=== PATIENT | male | born 1945 | race Caucasian/White ===

== ENCOUNTER 2018-05-03 10:24 | Day surgery (SDC) | payer MEDICARE, OTHER ==
[~2018-05-03] VITALS: Ht 162.6 cm; Wt 69.4 kg
[2018-05-03] MEDS ORDERED: MYCOPHENOLIC ACID (12:44)
[2018-05-03] MEDS ORDERED: DILTIAZEM (12:44)
[2018-05-03] MEDS ORDERED: ENVARSUS (12:44)
[2018-05-03] MEDS ORDERED: PLAVIX (12:44)
[2018-05-03] MEDS ORDERED: LANTUS (12:44)
[2018-05-03] MEDS ORDERED: FUROSEMIDE (12:44)
[2018-05-03] MEDS ORDERED: AMLODIPINE (12:44)
[2018-05-03] MEDS ORDERED: ATORVASTATIN (12:44)
[2018-05-03] MEDS ORDERED: PREDNISONE (12:44)
[2018-05-03 12:56] VITALS: BP 162/89; PULSE 72; RESP 18
[2018-05-03] MEDS ORDERED: CEFAZOLIN 1 GM/50 ML (PMX) 50 ML IVPB ONE (12:56)
[2018-05-03] MEDS ORDERED: PROPOFOL 20 ML ONE (13:10)
--- NOTE | 2018-05-03 13:14 | PREAC ---
Date/Time of Note Date/Time of Note DATE: 05/03/18 TIME: 13:13 Anesthesia Eval and Record Evaluation Time Pre-Procedure Interview DATE: 05/03/18 TIME: 13:13 Age 72 Sex male NPO: 8 hrs Preoperative diagnosis abd pain Planned procedure EGD Past Medical History Past Medical History: Includes Cardio: HTN Endo: Diabetes Renal: Other (kidney transplant) Surgery & Anesthesia Issues No known issue Meds Anticoagulation: Yes (stop 3 days ago plavix) Beta Naz within 24 hr: No Reason Beta Naz not given: Pt. not on B-Naz Reported Medications [Prednisone] No Conflict Check 05/03/18 [Mycophenolic Acid] No Conflict Check 05/03/18 [Atorvastatin] No Conflict Check 05/03/18 [Envarsus] No Conflict Check 05/03/18 [Diltiazem ] No Conflict Check 05/03/18 [Furosemide] No Conflict Check 05/03/18 [Amlodipine] No Conflict Check 05/03/18 [Plavix] No Conflict Check 05/03/18 [Lantus] No Conflict Check 05/03/18 Current Medications Cefazolin Sodium 50 ml @ 100 mls/hr ONCE IVPB ; Start 05/03/18 at 13:30; Stop 05/03/18 at 13:59; Status UNV Meds reviewed: Yes Allergies Coded Allergies: No Known Allergy (Unverified , 05/03/18) Allergies Reviewed: Yes Labs/Studies Labs Reviewed: Reviewed by anesthesiologist test: N/A Studies: ECG (n/a), CXR (n/a) Pre-procedure Exam Last vitals Vital Signs Date Temp Pulse Resp B/P (MAP) Pulse Ox O2 O2 Flow FiO2 Time Delivery Rate 05/03/18 98.7 72 18 162/89 97 Room Air 12:56 (113) Airway: Adequate mouth opening Mallampati: Mallampati I Teeth: Abnormal Lung: Normal Heart: Normal ASA Physical Status ASA physical status: 2 Emergency: None Planned Pain Management Parenteral pain med Pre-operative Attestations Prior to commencing anesthesia and surgery, the patient was re-evaluated, there was verification of: *The patient's identity *The results of appropriate recent lab work and preoperative vital signs *The above evaluation not changing prior to induction *Anesthetic plan, risk benefits, alternative and complications discussed with patient/family; questions answered; patient/family understands, accepts and wishes to proceed. LESLIE BOYD MD May 03, 2018 13:14
--- NOTE | 2018-05-03 13:29 | PAC ---
Date/Time of Note Date/Time of Note DATE: 05/03/18 TIME: 13:29 Post-Anesthesia Notes Post-Anesthesia Note Last documented vital signs Vital Signs Date Temp Pulse Resp B/P (MAP) Pulse Ox O2 O2 Flow FiO2 Time Delivery Rate 05/03/18 98.7 72 18 162/89 97 Room Air 12:56 (113) Activity: WNL Respiratory function: WNL Cardiovascular function: WNL Mental status: Baseline Pain reasonably controlled: Yes Hydration appropriate: Yes Nausea/Vomiting absent: No LESLIE BOYD MD May 03, 2018 13:29
[2018-05-03] MEDS ORDERED: HYDROmorphONE 1 MG/5 ML IV SYRINGE IV PRN ×3 (13:30)
[2018-05-03] MEDS ORDERED: MEPERIDINE 25 MG INJ IV PRN (13:30)
[2018-05-03] MEDS ORDERED: METOCLOPRAMIDE 10 MG INJ IV PRN (13:30)
[2018-05-03] MEDS ORDERED: CEFAZOLIN 1 GM/50 ML (PMX) 50 ML IVPB SCH (13:30)
[2018-05-03] MEDS ORDERED: DIPHENHYDRAMINE 50 MG INJ IV PRN (13:30)
[2018-05-03] MEDS ORDERED: OXYCODONE/ACETAMINOPHEN (5/325) TAB PO PRN ×2 (13:30)
--- NOTE | 2018-05-03 13:40 | PAC ---
Date/Time of Note Date/Time of Note DATE: 05/03/18 TIME: 13:40 Post-Anesthesia Notes Post-Anesthesia Note Last documented vital signs Vital Signs Date Temp Pulse Resp B/P (MAP) Pulse Ox O2 O2 Flow FiO2 Time Delivery Rate 05/03/18 98.7 72 18 162/89 97 Room Air 12:56 (113) Activity: WNL Respiratory function: WNL Cardiovascular function: WNL Mental status: Baseline Pain reasonably controlled: Yes Hydration appropriate: Yes Nausea/Vomiting absent: No LESLIE BOYD MD May 03, 2018 13:40
[2018-05-03 14:01] VITALS: BP 148/65; PULSE 62; RESP 20
== END 2018-05-03 14:28 | disposition home or self-care (01) ==
LOC: GIL 10:24
PROVIDERS: ATTEND Internal Medicine
DX: K21.0 Gastro-esophageal reflux disease with esophagitis (principal); E11.9 Type 2 diabetes mellitus without complications; I10 Essential (primary) hypertension; Z94.0 Kidney transplant status; Z79.4 Long term (current) use of insulin
CPT/HCPCS: 43239; 82962; J0690; 88305; 88312; 88313